=== PATIENT | male | born 2000 ===

== ENCOUNTER 2022-01-19 23:54 | Emergency (ER) | payer SELFPAY ==
[~2022-01-19] VITALS: Ht 177.8 cm; Wt 100.0 kg
[2022-01-20 00:31] VITALS: BP 120/65
== END 2022-01-20 00:43 | disposition home or self-care (01) ==
LOC: ER 23:54
DX: F10.229 Alcohol dependence with intoxication, unspecified (principal); F11.10 Opioid abuse, uncomplicated; Y90.9 Presence of alcohol in blood, level not specified
CPT/HCPCS: 99283